=== PATIENT | male | born 1950 | race Caucasian/White ===

== ENCOUNTER 2016-09-23 09:59 | Emergency (ER) | payer MEDICARE ==
[2016-09-23 09:59] VITALS: BMI 30.4
[2016-09-23 10:27] LABS: AUTOMATED BASOPHIL 1.3 % (0-2); AUTOMATED EOSINOPHIL 0.8 % (0-5); AUTOMATED LYMPH 7.2 % (17-44); AUTOMATED MONOCYTE 4.6 % (3-10); AUTOMATED NEUTROPHIL 86.1 % (45-76); MPV 7.8 fL (7.4-10.4)
[2016-09-23 10:35] VITALS: TEMP 98
[2016-09-23 10:40] LABS: PARTIAL THROMB. TIME 20.1 SEC (22-35); PT-INR 1.1
[2016-09-23 10:48] LABS: BLOOD UREA NITROGEN 7 MG/DL (9-20); CALCIUM 9.8 MG/DL (8.4-10.2); CALCULATED OSMOLALITY 264 MOs/Kg (270-290); CHLORIDE 98 mEq/L (98-107); ETOH-MGDL < 10 mg/dL; GLUCOSE 129 MG/DL (70-99); SODIUM LEVEL 137 mEq/L (137-146); TOTAL PROTEIN 8.6 G/DL (6.3-8.2)
--- NOTE | 2016-09-23 11:16 | DIRPT ---
CLINICAL DATA: Shortness of breath, nausea, vomiting. Left rib pain and chest pain after tripping and falling and hitting a table. EXAM: PORTABLE CHEST 1 VIEW COMPARISON: 08/27/2016 FINDINGS: Heart is borderline in size. Lungs are clear. No effusions or pneumothorax. No visible rib fracture. IMPRESSION: No active disease. Electronically Signed By: Markell Bowman M.D. On: 09/23/2016 11:13
[2016-09-23 11:24] LABS: ALL NEG? NO
[2016-09-23] MEDS ORDERED: FENTANYL 100 MCG/2 ML VIAL IV ONE (11:33)
[2016-09-23] MEDS ORDERED: NS 1,000 ML IV ONE ×2 (11:33)
[2016-09-23] MEDS ORDERED: DIAZEPAM 10 MG/2 ML TUBEX IV ONE (11:34)
--- NOTE | 2016-09-23 11:35 | EDPRACDOC ---
- General Chief Complaint: Rib Pain Stated Complaint: CHEST PAIN Time Seen by Provider: 09/23/16 10:00 Information Source: Patient - History of Present Illness Onset: 3 DAYS AGO HPI: PATIENT ABSTAIN FROM ALCOHOL FOR APPROXIMATELY LIVER MONTHS, UNTIL LAST WEEK WHEN HE STARTED ALCOHOL BINGE. HE FELL ON HIS HEAD AT THAT TIME. ALSO SUSTAINED LEFT CHEST AND UPPER ABDOMINAL PAIN . THIS ABDOMINAL PAIN IS AGGRAVATED BY AGGRAVATED BY MOVEMENT AND BREATHING. DENIES ANY WEAKNESS. HIS ALSO HAVE BLURRY VISION HIS EARS ARE RINGING WELL. Pain Severity: Reports: Moderate Injuries/Pain Location: Reports: head, chest, abdomen (LEFT SIDE) Reason for Fall: Reports: lost balance, other (ETOH AT THAT TIME) Loss of Consciousness: no loss of consciousness Associated Symptoms (Fall): Reports: confusion, headache, ringing in ears, vision changes Allergies/Adverse Reactions: Allergies No Known Allergies Allergy (Verified 09/23/16 10:26) Home Medications: Ambulatory Orders Prazosin [Minipres] 1 mg PO TID 05/08/15 Atorvastatin Calcium 80 mg PO QHS 01/28/16 Duloxetine HCl [Cymbalta] 60 mg PO DAILY #30 02/06/16 Omeprazole 20 mg PO DAILY #30 02/06/16 Thiamine Mononitrate [Vitamin B-1] 100 mg PO DAILY #30 02/06/16 Allopurinol [Zyloprim] 100 mg PO DAILY 05/23/16 Buspirone HCl [Buspar] 15 mg PO TID 05/23/16 Quetiapine Fumarate [Seroquel Xr] 200 mg PO QHS 05/23/16 Trazodone HCl [Desyrel] 100 - 300 mg PO HS 05/23/16 Digoxin [Lanoxin, Digitek] 0.5 mg PO DAILY 08/13/16 Atenolol [Tenormin] 50 mg PO DAILY 08/20/16 Diltiazem HCl [Cardizem] 120 mg PO TID 08/20/16 Diazepam [Valium] 5 mg PO Q6 #10 tablet 09/23/16 Oxycodone Immediate Release [Oxycodone Immediate Release (OxyIR)] 5 - 15 mg PO Q4H PRN #30 tab 09/23/16 Rivaroxaban [Xarelto] 20 mg PO DAILY 09/23/16 ED Past Medical History - History Reviewed Yes Nurses notes reviewed and agree except as marked - Patient Medical History Neurological History: Reports: Cerebrovascular Accident (2014 NO RESIDUAL EFFECT), Seizures (MANY YEARS AGO ), Dementia Cardiac History: Reports: Coronary Artery Disease, Atrial Fibrillation, Hypertension, Congestive Heart Failure, Heart Attack, Cardiac Catheterization, Hypercholesterolemia Respiratory History: Reports: COPD GI/ History: Reports: Renal Disease, Gastroesophageal Reflux Musculoskeletal History: Reports: Arthritis (RT HAND), Gout Psychological History: Reports: Depression, Anxiety, Bipolar Disorder, Substance Use Disorder (History of Alcohol; hx of cocaine per ) Systemic History: Reports: Cancer (STOMACH) Surgical History: Reports: Cardiac Catheterization, Hernia Surgery (x2 1965, 1966), Tonsillectomy/Adnoidectomy - Family Medical History Reports: Hypertension (brothers), Cancer (father), Stroke (mother), Cardiac Disorders (brothers). Denies: Diabetes - Social Medical History Smoking Status: Heavy tobacco smoker (5 or more cigarettes/day or daily pipe/ cigar) Social History: Reports: Benzodiazipine Use, Substance Use Disorder (History of Alcohol; hx of cocaine per ) EDM Review of Systems - Review of Systems ROS Negative Except as Marked: Yes All systems reviewed and were negative except as marked - Physical Exam Constitutional: Alert, Distress, Restless, Other. negative: Well nourished, Well appearing Oriented to: Time, Person, Place Last recorded Vital Signs: Last Vital Signs Temp 98.0 F 09/23/16 10:00 Pulse 96 09/23/16 11:00 Resp 18 09/23/16 11:00 BP 135/85 09/23/16 11:00 Pulse Ox 98 09/23/16 11:00 Oxygen Pulse Oxygen Saturation 98 O2 Device Oxygen Flow Rate Fraction of Inspired Oxygen ( FIO2) - HEENT Head: Normal, Abrasion (LEFT FOREHEAD), Swelling, Tender. negative: Laceration Oropharynx: Normal. negative: Membranes Dry Nose: No Symptoms Reported Neck: Normal. negative: Bony Tenderness, In Collar, Limited ROM, Lymphadenopathy, Meningeal Signs - Respiratory/Cardiovascular Respiratory: Normal - CTA Cardiovascular: Normal Respiratory/Cardiovascular Comment: LEFT ANTERIOR CHEST TENDER PALPATION, NO ECCHYMOSIS NO CREPITANCE. - GI Auscultation: Normal Tenderness: Moderate, LLQ. negative: Guarding, Rebound, Rigidity Hardin's Sign: Negative - Bladder: Normal - Musculoskeletal Back: Normal. negative: Abrasion, Ecchymosis, Laceration, CVA Tenderness, Thoracic Step-off, Lumbar Step-off, Thoracic TTP, Lumbar TTP Extremities: Normal - Integumentary Skin: Cool, Diaphoretic - Neurologic Memory Impaired: Normal Cerebellar: Ataxia Mood Description: Normal, Anxious, Appropriate Thought: Coherent Perception: Normal - Re-evaluation Re-evaluation 3 Re-evaluation Time: 15:51 (AMBULATING WITH EASE. NO SIGNS OF DT OR DOMITILA.) - Results 09/23/16 10:18 09/23/16 10:18 WBC 12.2 xk/uL (3.8-10.8) H 09/23/16 10:18 RBC 5.86 xM/uL (4.70-6.10) 09/23/16 10:18 Hgb 17.5 g/dL (14.0-18.0) 09/23/16 10:18 Hct 51.2 % (42-52) 09/23/16 10:18 MCV 87 fL (80-94) 09/23/16 10:18 MCH 29.8 pg (27-32) 09/23/16 10:18 MCHC 34.1 g/dl (33-36) 09/23/16 10:18 RDW 15.5 % (11.5-14.5) H 09/23/16 10:18 Plt Count 278 xk/uL (130-400) 09/23/16 10:18 MPV 7.8 fL (7.4-10.4) 09/23/16 10:18 Neut % (Auto) 86.1 % (45-76) H 09/23/16 10:18 Lymph % (Auto) 7.2 % (17-44) L 09/23/16 10:18 [place] % (Auto) 4.6 % (3-10) 09/23/16 10:18 Eos % (Auto) 0.8 % (0-5) 09/23/16 10:18 Baso % (Auto) 1.3 % (0-2) 09/23/16 10:18 Absolute Neuts (auto) 10.49 xk/uL (1.7-8.2) H 09/23/16 10:18 Absolute Lymphs (auto) 0.85 xk/uL (0.65-4.75) 09/23/16 10:18 PT 11.0 SEC (9.2-11.2) 09/23/16 10:18 INR 1.1 09/23/16 10:18 APTT 20.1 SEC (22-35) L 09/23/16 10:18 Sodium 137 mEq/L (137-146) 09/23/16 10:18 Potassium 5.7 mEq/L (3.5-5.1) H 09/23/16 10:18 Chloride 98 mEq/L (98-107) 09/23/16 10:18 Carbon Dioxide 25 mMOL/L (22-33) 09/23/16 10:18 Anion Gap 20 mEq/L (8-16) H 09/23/16 10:18 BUN 7 MG/DL (9-20) L 09/23/16 10:18 Creatinine 0.80 MG/DL (0.66-1.25) 09/23/16 10:18 Estimated GFR (MDRD) > 60 mL/min (>=60) 09/23/16 10:18 Glucose 129 MG/DL (70-99) H 09/23/16 10:18 Calculated Osmolality 264 MOs/Kg (270-290) L 09/23/16 10:18 Calcium 9.8 MG/DL (8.4-10.2) 09/23/16 10:18 Magnesium 1.90 MG/DL (1.6-2.3) 09/23/16 10:18 Total Bilirubin 1.5 MG/DL (0.2-1.3) H 09/23/16 10:18 AST 41 IU/L (17-59) 09/23/16 10:18 ALT 60 IU/L (21-72) 09/23/16 10:18 Alkaline Phosphatase 113 IU/L (50-160) 09/23/16 10:18 Troponin I 0.02 ng/mL (<.04) 09/23/16 10:18 Ctw-H-Ejntnpazyaq Pept 1410 pg/mL (0-900) H 09/23/16 10:18 Total Protein 8.6 G/DL (6.3-8.2) H 09/23/16 10:18 Albumin 4.6 G/DL (3.5-5.0) 09/23/16 10:18 Plasma/Serum Ethyl Alc % (<0.01) 09/23/16 10:18 Lab Results 09/23/16 09/23/16 09/23/16 10:18 10:18 10:18 WBC 12.2 H RBC 5.86 Hgb 17.5 Hct 51.2 MCV 87 MCH 29.8 MCHC 34.1 RDW 15.5 H Plt Count 278 MPV 7.8 Neut % (Auto) 86.1 H Lymph % (Auto) 7.2 L Hooker % (Auto) 4.6 Eos % (Auto) 0.8 Baso % (Auto) 1.3 Absolute Neuts (auto) 10.49 H Absolute Lymphs (auto) 0.85 PT 11.0 INR 1.1 APTT 20.1 L Sodium 137 Potassium 5.7 H Chloride 98 Carbon Dioxide 25 Anion Gap 20 H BUN 7 L Creatinine 0.80 Estimated GFR (MDRD) > 60 Glucose 129 H Calculated Osmolality 264 L Calcium 9.8 Magnesium 1.90 Total Bilirubin 1.5 H AST 41 ALT 60 Alkaline Phosphatase 113 Troponin I 0.02 Mct-M-Sutxspwyleo Pept 1410 H Total Protein 8.6 H Albumin 4.6 Plasma/Serum Ethyl Alc - EKG EKG #1 EKG Time: 10:44 -: Yes EKG interpreted by me Rate: bpm: 82 [place]: Normal Rhythm: NSR, Afib Block: None Hypertrophy: None ST: Inf, Ant, Lat Comparison: 08/20/16 (SIMILAR TRENDS PRIOR) - Diagnostic Imaging Head Image interpreted by: Radiologist Patient Name: OFELIA RUIZ LOC: ED : 1950 AGE: 66 Order Date:09/23/16 Date of Service:12/05 Report # [id number] Ord Physician: Asha Stevenson MD Exam # [id number] Emergency Physician: Asha Stevenson MD Exam(s): [id number] CT/CT HEAD W/O CM CLINICAL DATA: Fall, headache, left rib pain, tripped and fell 1 day ago EXAM: CT HEAD WITHOUT CONTRAST TECHNIQUE: Contiguous axial images were obtained from the base of the skull through the vertex without intravenous contrast. COMPARISON: 10/02/2015 FINDINGS: No skull fracture is noted. Paranasal sinuses and mastoid air cells are unremarkable. No intracranial hemorrhage, mass effect or midline shift. No acute cortical infarction. Mild cerebral atrophy is stable. Stable mild periventricular chronic white matter disease. Atherosclerotic calcifications of carotid siphon again noted. IMPRESSION: No acute intracranial abnormality. Stable mild cerebral atrophy. Stable mild chronic ischemic white matter disease. Electronically Signed By: Jose Quesada M.D. On: 09/23/2016 13:21 Electronically Signed By: Jose Quesada MD Electronically Signed Date/Time: [id number] Dictate Date/Time: 09/23/16 1319 Technologist: Altaf Curry Transcribed By: Claribel Transcribed Date/Time: 09/23/16 1321 Abdomen Image interpreted by: Radiologist Patient Name: OFELIA RUIZ LOC: ED : 1950 AGE: 66 Order Date:09/23/16 Date of Service:12/05 Report # [id number] Ord Physician: Asha Stevenson MD Exam # [id number] Emergency Physician: Asha Stevenson MD Exam(s): [id number] CT/CT [id number] W/IV CM CLINICAL DATA: Tripped and fell 1 day ago, chest pain, left side rib pain, abdominal pain EXAM: CT CHEST, ABDOMEN, AND PELVIS WITH CONTRAST TECHNIQUE: Multidetector CT imaging of the chest, abdomen and pelvis was performed following the standard protocol during bolus administration of intravenous contrast. CONTRAST: 100 cc Isovue COMPARISON: CT chest 12/31/[address] abdomen and pelvis 09/05/2015 FINDINGS: CT CHEST Probable hemangioma within sternum is stable in size in appearance from prior exam. No scapular fracture is noted. There is nondisplaced fracture of the left anterior sixth rib see axial image 35. Nondisplaced fracture of left anterior seventh rib in axial image 40. No right rib fracture is noted. Sagittal images of the spine shows mild degenerative changes mid and lower thoracic spine. No sternal fracture is noted. Images of the lung parenchyma shows no acute infiltrate or pleural effusion. There is no lung contusion. No pneumothorax. There is a 4 mm nodule in right upper lobe. Central airways are patent. There is no axillary adenopathy. CT ABDOMEN AND PELVIS No lower rib fractures are noted. Sagittal images of the spine shows degenerative changes lumbar spine. Disc space flattening with mild anterior spurring at L2-L3 and L3-L4 level. Disc space flattening with vacuum disc phenomenon at L4-L5 and L5-S1 level. There is mild fatty infiltration of the liver. Contracted gallbladder. No calcified gallstones are noted within gallbladder. No liver laceration. The pancreas, spleen and adrenal glands are unremarkable. Mild atherosclerotic calcifications of distal abdominal aorta. No aortic aneurysm. Enhanced kidneys are symmetrical in size. No hydronephrosis or hydroureter. No small bowel obstruction. No ascites or free air. No adenopathy. No pericecal inflammation. Normal appendix partially visualized axial image 95. Again noted right inguinal scrotal canal hernia containing fat measures about 4 cm stable in size in appearance from prior exam. Colonic diverticula are noted descending colon and sigmoid colon. No evidence of acute diverticulitis. No evidence of pelvic fractures. There is thickening of urinary bladder wall. Cystitis cannot be excluded. Question prior TURP defect anterior aspect of prostate gland axial image 114. Delayed renal images shows bilateral renal symmetrical excretion. Bilateral visualized proximal ureter is unremarkable. Stable retroperitoneal lymph nodes anterior to aorta measures 9 mm short-axis not pathologic by size criteria. IMPRESSION: 1. There is nondisplaced fracture of the left sixth and seventh anterior rib. No lung contusion or pneumothorax. 2. No mediastinal hematoma or adenopathy. 3. Degenerative changes lumbar spine. No acute fractures are noted within abdomen or pelvis. 4. There is fatty infiltration of the liver. No acute visceral injury within abdomen or pelvis. 5. Stable right inguinal scrotal canal hernia containing fat without evidence of acute complication. 6. There is thickening of urinary bladder wall. Findings suspicious for cystitis. Question prior TURP defect anterior aspect of prostate gland. 7. Colonic diverticula are noted descending colon and sigmoid colon. No evidence of acute diverticulitis. 8. Normal appendix. No pericecal inflammation. Electronically Signed By: Jose Quesada M.D. On: 09/23/2016 13:45 Electronically Signed By: Jose Quesada MD Electronically Signed Date/Time: [id number] Dictate Date/Time: 09/23/16 1322 - Additional Information DIGOXIN LEVEL IS OF UNCLEAR SIGNIFICANCE. HE IS SEEING HALOS AROUND LIGHTS HOWEVER THERE ARE NO OTHER SIGNIFICANT SIGNS OF DIGOXIN TOXICITY. HAS BEEN TREATED WITH DIG-VINI. WITH LITTLE CLINICAL SIGN OF DIG TOX, AND TREATED, NO INDICATION FOR INPAT CARE REGARDING THIS ISSUE. - Departure Disposition: Home Final Diagnosis: LEFT 6 & 7 RIB FRACTURE, Accidental fall Instructions: Fall Prevention (ED), Rib Fracture (ED) Education/Counseling Given To: Patient, Family Member Education/Counseling Given Regarding: Diagnosis, Treatment, Prognosis Referrals: Shay Herrera MD [Primary Care Provider] - One Week Prescriptions: Diazepam [Valium] 5 mg PO Q6 #10 tablet Oxycodone Immediate Release [Oxycodone Immediate Release (OxyIR)] 5 - 15 mg PO Q4H PRN #30 tab PRN Reason: Pain CIWA - Clinical [place] Withdrawal Assessment Re-evaluation 1 Nausea & Vomitting: No Nausea & No Vomiting Tremor: No Tremor Paroxysmal Sweats: Barely perceptible sweating, palms moist Anxiety: Mildly anxious Agitation: Normal activity Tactile Disturbances: None Auditory Disturbances: None Visual Disturbances: None (SOME HALOS AROUND THE LIGHT, BUT IS DIG TOX ALSO) Headache, Fullness in Head: Not Present Total CIWA Score: 2
[2016-09-23 11:37] LABS: MDMA* NEG (NEGATIVE); METHAMPHETAMINES NEG (NEGATIVE); OXYCODONE *POSITIVE* (NEGATIVE)
[2016-09-23] MEDS ORDERED: Pharmacy Review for Metformin - IV Contrast Given SCH (12:00)
--- NOTE | 2016-09-23 13:24 | DIRPT ---
CLINICAL DATA: Fall, headache, left rib pain, tripped and fell 1 day ago EXAM: CT HEAD WITHOUT CONTRAST TECHNIQUE: Contiguous axial images were obtained from the base of the skull through the vertex without intravenous contrast. COMPARISON: 10/02/2015 FINDINGS: No skull fracture is noted. Paranasal sinuses and mastoid air cells are unremarkable. No intracranial hemorrhage, mass effect or midline shift. No acute cortical infarction. Mild cerebral atrophy is stable. Stable mild periventricular chronic white matter disease. Atherosclerotic calcifications of carotid siphon again noted. IMPRESSION: No acute intracranial abnormality. Stable mild cerebral atrophy. Stable mild chronic ischemic white matter disease. Electronically Signed By: Jose Quesada M.D. On: 09/23/2016 13:21
--- NOTE | 2016-09-23 13:47 | DIRPT ---
CLINICAL DATA: Tripped and fell 1 day ago, chest pain, left side rib pain, abdominal pain EXAM: CT CHEST, ABDOMEN, AND PELVIS WITH CONTRAST TECHNIQUE: Multidetector CT imaging of the chest, abdomen and pelvis was performed following the standard protocol during bolus administration of intravenous contrast. CONTRAST: 100 cc Isovue COMPARISON: CT chest 12/31/[address] abdomen and pelvis 09/05/2015 FINDINGS: CT CHEST Probable hemangioma within sternum is stable in size in appearance from prior exam. No scapular fracture is noted. There is nondisplaced fracture of the left anterior sixth rib see axial image 35. Nondisplaced fracture of left anterior seventh rib in axial image 40. No right rib fracture is noted. Sagittal images of the spine shows mild degenerative changes mid and lower thoracic spine. No sternal fracture is noted. Images of the lung parenchyma shows no acute infiltrate or pleural effusion. There is no lung contusion. No pneumothorax. There is a 4 mm nodule in right upper lobe. Central airways are patent. There is no axillary adenopathy. CT ABDOMEN AND PELVIS No lower rib fractures are noted. Sagittal images of the spine shows degenerative changes lumbar spine. Disc space flattening with mild anterior spurring at L2-L3 and L3-L4 level. Disc space flattening with vacuum disc phenomenon at L4-L5 and L5-S1 level. There is mild fatty infiltration of the liver. Contracted gallbladder. No calcified gallstones are noted within gallbladder. No liver laceration. The pancreas, spleen and adrenal glands are unremarkable. Mild atherosclerotic calcifications of distal abdominal aorta. No aortic aneurysm. Enhanced kidneys are symmetrical in size. No hydronephrosis or hydroureter. No small bowel obstruction. No ascites or free air. No adenopathy. No pericecal inflammation. Normal appendix partially visualized axial image 95. Again noted right inguinal scrotal canal hernia containing fat measures about 4 cm stable in size in appearance from prior exam. Colonic diverticula are noted descending colon and sigmoid colon. No evidence of acute diverticulitis. No evidence of pelvic fractures. There is thickening of urinary bladder wall. Cystitis cannot be excluded. Question prior TURP defect anterior aspect of prostate gland axial image 114. Delayed renal images shows bilateral renal symmetrical excretion. Bilateral visualized proximal ureter is unremarkable. Stable retroperitoneal lymph nodes anterior to aorta measures 9 mm short-axis not pathologic by size criteria. IMPRESSION: 1. There is nondisplaced fracture of the left sixth and seventh anterior rib. No lung contusion or pneumothorax. 2. No mediastinal hematoma or adenopathy. 3. Degenerative changes lumbar spine. No acute fractures are noted within abdomen or pelvis. 4. There is fatty infiltration of the liver. No acute visceral injury within abdomen or pelvis. 5. Stable right inguinal scrotal canal hernia containing fat without evidence of acute complication. 6. There is thickening of urinary bladder wall. Findings suspicious for cystitis. Question prior TURP defect anterior aspect of prostate gland. 7. Colonic diverticula are noted descending colon and sigmoid colon. No evidence of acute diverticulitis. 8. Normal appendix. No pericecal inflammation. Electronically Signed By: Jose Quesada M.D. On: 09/23/2016 13:45
[2016-09-23] MEDS ORDERED: DIGOXIN IMMUNE FAB IV ONE (13:54)
[2016-09-23] MEDS ORDERED: NS IV ONE (13:54)
[2016-09-23 14:03] LABS: CPK TOTAL WITH POSSIBLE MB 337 IU/L (55-170)
[2016-09-23 14:19] LABS: CPKMB 3.4 ng/mL (0-4.5)
[2016-09-23] MEDS ORDERED: OXYCODONE HCL 5 MG TABLET PO ONE (15:51)
[2016-09-23] MEDS ORDERED: DIAZEPAM 5 MG TAB PO ONE (15:51)
[2016-09-23 15:56] VITALS: BP 129/71; PULSE 86
== END 2016-09-23 16:05 | disposition home or self-care (01) ==
LOC: ED 09:59
DX: S22.42XA Multiple fractures of ribs, left side, initial encounter for closed fracture (principal); S00.81XA Abrasion of other part of head, initial encounter; W01.0XXA Fall on same level from slipping, tripping and stumbling without subsequent striking against object, initial encounter; I25.10 Atherosclerotic heart disease of native coronary artery without angina pectoris; I48.91 Unspecified atrial fibrillation; I10 Essential (primary) hypertension; I50.9 Heart failure, unspecified; E78.00 Pure hypercholesterolemia, unspecified; J44.9 Chronic obstructive pulmonary disease, unspecified; K21.9 Gastro-esophageal reflux disease without esophagitis; F32.9 Major depressive disorder, single episode, unspecified; F41.9 Anxiety disorder, unspecified; F19.10 Other psychoactive substance abuse, uncomplicated; F17.200 Nicotine dependence, unspecified, uncomplicated; R10.10 Upper abdominal pain, unspecified; R51 Headache; H53.8 Other visual disturbances
CPT/HCPCS: 36415; 70450; 71010; 71260; 74177; 80053; 80162; 80307; 82550; 82553; 83735; 83880; 84484; 85025; 85610; 85730; 93005; 96361; 96365; 96375; 99285; A9270; A9698; G0479; J1162; J3010; J3360; J7030; 80320; 80329; J3490